=== PATIENT | female | born 1960 | race Caucasian/White ===

== ENCOUNTER 2018-01-12 11:44 | Emergency (ER) | payer SELFPAY ==
[2018-01-12] MEDS ORDERED: IOHEXOL 350 MG/ML 10 ML VIAL (for RAD DIAG) IVCONTRAST ONE (11:45)
[2018-01-12 11:56] VITALS: BP 117/73; PULSE 93; RESP 16; TEMP 98.5; O2SAT 99
[2018-01-12] MEDS ORDERED: SODIUM CHLORIDE 0.9% FLUSH 10 ML FLUSH IV FLUSH PRN (13:00)
--- NOTE | 2018-01-12 13:02 | PD ---
HPI Chief Complaint: GI Complaint Time Seen by Provider: 12:35 Travel History International Travel<30 days: No Contact w/Intl Traveler<30days: No Traveled to known affect area: No History of Present Illness HPI 37-year-old female presents to the emergency department with complaint of lower abdominal pain 4 days. Denies dysuria, urinary frequency, hematuria, nausea, vomiting, diarrhea, constipation. Denies abnormal vaginal discharge, although she does state she noticed a different vaginal spell yesterday. Last bowel movement was yesterday and is normal. Says she has noticed some right flank pain today. Does have history of kidney stones. Has history of total hysterectomy and appendectomy. She is taken Advil for symptom management with no relief. Rates pain 9/10. Says the pain is constant and there are no known relieving or aggravating factors. No primary care provider. No known allergies. History of asthma. Has no other medical complaints. No other modifying factors or associated signs and symptoms. PFSH Past Medical History GERD: Yes Migraines: Yes Past Surgical History Appendectomy: Yes Hysterectomy: Yes Social History Alcohol Use: No Tobacco Use: No Substance Use: No Allergies-Medications (Allergen,Severity, Reaction): Coded Allergies: No Known Allergies (Unverified , 01/12/18) Reported Meds & Prescriptions Reported Meds & Active Scripts Active No Active Prescriptions or Reported Medications Review of Systems Except as stated in HPI: all other systems reviewed are Neg Physical Exam Narrative GENERAL: Well-nourished, well-developed female patient, in no acute distress; afebrile SKIN: Warm and dry. HEAD: Atraumatic. Normocephalic. EYES: Pupils equal and round. No scleral icterus. No injection or drainage. ENT: Mucosa pink and moist. Airway patent. NECK: Trachea midline. CARDIOVASCULAR: Regular rate and rhythm. No murmur appreciated. RESPIRATORY: No accessory muscle use. Clear to auscultation. Breath sounds equal bilaterally. GASTROINTESTINAL: Abdomen soft, tenderness on palpation to mid lower epigastric/ pelvic, nondistended. Hepatic and splenic margins not palpable. Bowel sounds are active 4 quadrants. Nonrigid. No rebound tenderness. No guarding. BACK: No CVA tenderness. MUSCULOSKELETAL: No obvious deformities. No clubbing. No cyanosis. No edema. NEUROLOGICAL: Awake and alert. Oriented 3. No obvious cranial nerve deficits. Motor grossly within normal limits. Normal speech. PSYCHIATRIC: Appropriate mood and affect; insight and judgment normal. Data Data Last Documented VS Vital Signs Date Time Temp Pulse Resp B/P (MAP) Pulse Ox O2 Delivery O2 Flow Rate FiO2 01/12/18 11:56 98.5 93 16 117/73 (88) 99 Orders Orders Complete Blood Count With Diff (01/12/18 12:52) Comprehensive Metabolic Panel (01/12/18 12:52) Lipase (01/12/18 12:52) Urinalysis - C+S If Indicated (01/12/18 12:52) Iv Access Insert/Monitor (01/12/18 12:52) Sodium Chloride 0.9% Flush (Ns Flush) (01/12/18 13:00) Sodium Chlor 0.9% 1000 Ml Inj (Ns 1000 M (01/12/18 13:07) Ketorolac Inj (Toradol Inj) (01/12/18 13:15) Wet Prep Profile (01/12/18 14:56) Ct Abd/Pel W Iv Contrast(Rout) (01/12/18 15:02) Iohexol 350 Inj (Omnipaque 350 Inj) (01/12/18 11:45) Labs Laboratory Tests Test 01/12/18 13:40 01/12/18 15:06 White Blood Count 10.9 TH/MM3 Red Blood Count 4.18 MIL/MM3 Hemoglobin 12.4 GM/DL Hematocrit 37.0 % Mean Corpuscular Volume 88.5 FL Mean Corpuscular Hemoglobin 29.7 PG Mean Corpuscular Hemoglobin Concent 33.5 % Red Cell Distribution Width 13.6 % Platelet Count 293 TH/MM3 Mean Platelet Volume 8.1 FL Neutrophils (%) (Auto) 74.4 % Lymphocytes (%) (Auto) 17.0 % Monocytes (%) (Auto) 7.1 % Eosinophils (%) (Auto) 0.9 % Basophils (%) (Auto) 0.6 % Neutrophils # (Auto) 8.1 TH/MM3 Lymphocytes # (Auto) 1.8 TH/MM3 Monocytes # (Auto) 0.8 TH/MM3 Eosinophils # (Auto) 0.1 TH/MM3 Basophils # (Auto) 0.1 TH/MM3 CBC Comment DIFF FINAL Differential Comment Urine Color YELLOW Urine Turbidity CLEAR Urine pH 5.5 Urine Specific [place] 1.029 Urine Protein TRACE mg/dL Urine Glucose (UA) NEG mg/dL Urine Ketones NEG mg/dL Urine Occult Blood NEG Urine Nitrite NEG Urine Bilirubin NEG Urine Urobilinogen 2.0 MG/DL Urine Leukocyte Esterase SMALL Urine RBC 2 /hpf Urine WBC 5 /hpf Urine Squamous Epithelial Cells 1 /hpf Urine Calcium Oxalate Crystals FEW /hpf Urine Mucus FEW /lpf Microscopic Urinalysis Comment CULT NOT INDICATED Blood Urea Nitrogen 11 MG/DL Creatinine 0.76 MG/DL Random Glucose 113 MG/DL Total Protein 7.2 GM/DL Albumin 3.4 GM/DL Calcium Level 9.0 MG/DL Alkaline Phosphatase 106 U/L Aspartate Amino Transf (AST/SGOT) 20 U/L Alanine Aminotransferase (ALT/SGPT) 19 U/L Total Bilirubin 0.5 MG/DL Sodium Level 141 MEQ/L Potassium Level 3.7 MEQ/L Chloride Level 109 MEQ/L Carbon Dioxide Level 27.2 MEQ/L Anion Gap 5 MEQ/L Estimat Glomerular Filtration Rate 78 ML/MIN Lipase 93 U/L Clue Cells (Wet Prep) NONE SEEN Vaginal Trichomonas (Wet Prep) NONE SEEN Vaginal Yeast (Wet Prep) NONE SEEN MDM Medical Decision Making Medical Screen Exam Complete: Yes Emergency Medical Condition: Yes Medical Record Reviewed: Yes Differential Diagnosis Bacterial vaginosis, vaginal yeast, diverticulitis, nonspecific abdominal pain, constipation Narrative Course 57-year-old female with lower abdominal pain. Afebrile and nontoxic-appearing. Denies fever, vomiting, diarrhea. Discussed the patient with Dr. Moser and plan of care discussed. CBC, CMP, lipase, urinalysis, CT abdomen/pelvis, wet prep ordered. IV fluids, Toradol ordered. 1428: CBC, CMP unremarkable. Lipase 93. Urinalysis without signs of infection. 1733:, Vaginal yeast, bacterial vaginosis negative. 1734: CT abdomen/pelvis conclude: Abdomen/Pelvis CT 01/12/18 1502 Signed Impressions: Service Date/Time: Friday, January 12, 2018 15:20 - CONCLUSION: Focal inflammation around a small sigmoid diverticula consistent with diverticulitis. No abscess free air or free fluid is noted. Edis Reis MD Discussed CT findings with the patient. Dr. Enriquez evaluated the patient and agrees for discharge with antibiotics. Ciprofloxacin, Flagyl, tramadol, Zofran prescribed for home. Instructed patient to follow-up with gastroenterology. Instructed patient to follow up with primary care provider. Patient verbalizes understanding and agreement with treatment plan. Patient is medically cleared and stable for discharge. Discussed reasons to return to the emergency department. Patient agrees with treatment plan. The patients vital signs are stable and the patient is stable for outpatient follow-up and treatment. Patient discharged home, stable and in no acute distress. Diagnosis Primary Impression: Diverticulitis Referrals: [facility] Primary Care Physician Patient Instructions: Diverticulitis (ED), General Instructions Additional Instructions: Antibiotics as prescribed and complete full course Ibuprofen or Tylenol as directed and as needed for pain Follow-up with charcoal unloader Follow-up with primary care provider Return to the emergency department immediately with worsening of symptoms Med/Other Pt SpecificInfo: Prescription(s) given Scripts Ondansetron Odt (Zofran Odt) 4 Mg Tab 4 MG SL Q8HR Y for Nausea/Vomiting, #8 TAB 0 Refills Prov: Teresa ValdiviaP 01/12/18 Tramadol (Tramadol) 50 Mg Tab 50 MG PO Q4H Y for PAIN, #10 TAB 0 Refills Prov: Teresa ValdiviaP 01/12/18 Metronidazole (Flagyl) 500 Mg Tab 500 MG PO TID for Infection for 7 Days, TAB 0 Refills Prov: Teresa ValdiviaP 01/12/18 Ciprofloxacin (Ciprofloxacin) 500 Mg Tab 500 MG PO BID for Infection for 7 Days, #14 TAB 0 Refills Prov: Teresa ValdiviaP 01/12/18 Disposition: 01 DISCHARGE HOME Condition: Stable Teresa Valdivia Jan 12, 2018 13:02
[2018-01-12] MEDS ORDERED: SODIUM CHLOR 0.9% 1000 ML INJ 1,000 ML IV SCH (13:07)
[2018-01-12] MEDS ORDERED: KETOROLAC TROMETHAMINE 30 MG/ML (IVP) VIAL IVP ONE (13:15)
[2018-01-12 13:48] LABS: AUTOMATED NEUTROPHIL # 8.1 TH/MM3 (1.8-7.7); BASOPHIL # 0.1 TH/MM3 (0-0.2); BASOPHIL % 0.6 % (0.0-2.0); EOSINOPHIL # 0.1 TH/MM3 (0-0.4); EOSINOPHIL % 0.9 % (0.0-4.0); HEMOGLOBIN 12.4 GM/DL (11.6-15.3); LYMPHOCYTE # 1.8 TH/MM3 (1.0-4.8); MEAN CELL VOLUME 88.5 FL (80.0-100.0); MEAN CORPUSCULAR HEMOGLOBIN 29.7 PG (27.0-34.0); MEAN CORPUSCULAR HGB CONC 33.5 % (32.0-36.0); MEAN PLATELET VOLUME 8.1 FL (7.0-11.0); MONO % 7.1 % (0.0-8.0); MONOCYTE # 0.8 TH/MM3 (0-0.9); NEUT % 74.4 % (16.0-70.0); PLATELET COUNT 293 TH/MM3 (150-450); RED BLOOD COUNT 4.18 MIL/MM3 (4.00-5.30); RED CELL DISTRIBUTION WIDTH 13.6 % (11.6-17.2); WHITE BLOOD COUNT 10.9 TH/MM3 (4.0-11.0)
[2018-01-12 13:58] LABS: BILIRUBIN, URINE NEG (NEG); BLOOD, URINE NEG (NEG); CALCIUM OXALATE CRYSTALS,URINE FEW /hpf; GLUCOSE,URINE NEG (NEG); KETONE, URINE NEG (NEG); MUCUS URINE FEW /lpf (OCC); NITRITE,URINE NEG (NEG); PH, URINE 5.5 (5.0-8.5); SQUAMOUS EPITHELIAL CELL URINE 1 /hpf (0-5); URINE COLOR YELLOW (YELLW/STRAW); URINE LEUKOCYTE ESTERASE SMALL (NEG)
[2018-01-12 14:18] LABS: ALBUMIN 3.4 GM/DL (3.4-5.0); AST (GOT) 20 U/L (15-37); BICARBONATE 27.2 MEQ/L (21.0-32.0); BLOOD UREA NITROGEN 11 MG/DL (7-18); CHLORIDE 109 MEQ/L (98-107); CREATININE 0.76 MG/DL (0.50-1.00); GLOMERULAR FILTRATION RATE 78 ML/MIN (>89); GLUCOSE,RANDOM 113 MG/DL (74-106); SODIUM (NA) 141 MEQ/L (136-145)
[2018-01-12 14:25] LABS: ALKALINE PHOSPHATASE 106 U/L (45-117); ALT (GPT) 19 U/L (10-53); TOTAL BILIRUBIN ADULT 0.5 MG/DL (0.2-1.0); TOTAL PROTEIN 7.2 GM/DL (6.4-8.2)
--- NOTE | 2018-01-12 15:41 | RADRPT ---
EXAM DATE/TIME: 01/12/2018 15:20 [facility] COMPARISON: No previous studies available for comparison. INDICATIONS : Abdominal pain. IV CONTRAST: 94 cc Omnipaque 350 (iohexol) IV ORAL CONTRAST: No oral contrast ingested. RADIATION DOSE: 7.85 CTDIvol (mGy) MEDICAL HISTORY : Gastroesophageal reflux disease. SURGICAL HISTORY : Appendectomy. Hysterectomy. ENCOUNTER: Initial ACUITY: 4 - 6 days PAIN SCALE: 9/10 LOCATION: Bilateral lower quadrant TECHNIQUE: Volumetric scanning of the abdomen and pelvis was performed. Using automated exposure control and ad justment of the mA and/or kV according to patient size, radiation dose was kept as low as reasonably achievable to obtain optimal diagnostic quality images. DICOM format image data is available electro nically for review and comparison. FINDINGS: LOWER LUNGS: The visualized lower lungs are clear. LIVER: Homogeneous density without lesion. There is no dilation of the biliary tree. No calcified gallston es. SPLEEN: Normal size without lesion. PANCREAS: Within normal limits. KIDNEYS: Normal in size and shape. There is no mass, stone or hydronephrosis. ADRENAL GLANDS: Within normal limits. VASCULAR: There is no aortic aneurysm. BOWEL/MESENTERY: Focal inflammation around a small sigmoid diverticula consistent with diverticulitis. No abscess free air or free fluid is noted ABDOMINAL WALL: Within normal limits. RETROPERITONEUM: There is no lymphadenopathy. BLADDER: No wall thickening or mass. REPRODUCTIVE: Within normal limits. INGUINAL: There is no lymphadenopathy or hernia. MUSCULOSKELETAL: Within normal limits for patient age. CONCLUSION: Focal inflammation around a small sigmoid diverticula consistent with diverticulitis. No abscess free air or free fluid is noted. Edis Reis MD on January 12, 2018 at 15:36 Board Certified Radiologist. This report was verified electronically.
[2018-01-12] MEDS ORDERED: TRAM50TA PO (17:46)
[2018-01-12] MEDS ORDERED: CIPR500T2 PO (17:46)
[2018-01-12] MEDS ORDERED: METR-1 PO (17:46)
[2018-01-12] MEDS ORDERED: ZOFR4TAB3 SL (17:46)
--- NOTE | 2018-01-12 17:52 | PD ---
Data Data Last Documented VS Vital Signs Date Time Temp Pulse Resp B/P (MAP) Pulse Ox O2 Delivery O2 Flow Rate FiO2 01/12/18 11:56 98.5 93 16 117/73 (88) 99 Orders Orders Complete Blood Count With Diff (01/12/18 12:52) Comprehensive Metabolic Panel (01/12/18 12:52) Lipase (01/12/18 12:52) Urinalysis - C+S If Indicated (01/12/18 12:52) Iv Access Insert/Monitor (01/12/18 12:52) Sodium Chloride 0.9% Flush (Ns Flush) (01/12/18 13:00) Sodium Chlor 0.9% 1000 Ml Inj (Ns 1000 M (01/12/18 13:07) Ketorolac Inj (Toradol Inj) (01/12/18 13:15) Wet Prep Profile (01/12/18 14:56) Ct Abd/Pel W Iv Contrast(Rout) (01/12/18 15:02) Iohexol 350 Inj (Omnipaque 350 Inj) (01/12/18 11:45) Ed Discharge Order (01/12/18 17:50) Labs Laboratory Tests Test 01/12/18 13:40 01/12/18 15:06 White Blood Count 10.9 TH/MM3 Red Blood Count 4.18 MIL/MM3 Hemoglobin 12.4 GM/DL Hematocrit 37.0 % Mean Corpuscular Volume 88.5 FL Mean Corpuscular Hemoglobin 29.7 PG Mean Corpuscular Hemoglobin Concent 33.5 % Red Cell Distribution Width 13.6 % Platelet Count 293 TH/MM3 Mean Platelet Volume 8.1 FL Neutrophils (%) (Auto) 74.4 % Lymphocytes (%) (Auto) 17.0 % Monocytes (%) (Auto) 7.1 % Eosinophils (%) (Auto) 0.9 % Basophils (%) (Auto) 0.6 % Neutrophils # (Auto) 8.1 TH/MM3 Lymphocytes # (Auto) 1.8 TH/MM3 Monocytes # (Auto) 0.8 TH/MM3 Eosinophils # (Auto) 0.1 TH/MM3 Basophils # (Auto) 0.1 TH/MM3 CBC Comment DIFF FINAL Differential Comment Urine Color YELLOW Urine Turbidity CLEAR Urine pH 5.5 Urine Specific [place] 1.029 Urine Protein TRACE mg/dL Urine Glucose (UA) NEG mg/dL Urine Ketones NEG mg/dL Urine Occult Blood NEG Urine Nitrite NEG Urine Bilirubin NEG Urine Urobilinogen 2.0 MG/DL Urine Leukocyte Esterase SMALL Urine RBC 2 /hpf Urine WBC 5 /hpf Urine Squamous Epithelial Cells 1 /hpf Urine Calcium Oxalate Crystals FEW /hpf Urine Mucus FEW /lpf Microscopic Urinalysis Comment CULT NOT INDICATED Blood Urea Nitrogen 11 MG/DL Creatinine 0.76 MG/DL Random Glucose 113 MG/DL Total Protein 7.2 GM/DL Albumin 3.4 GM/DL Calcium Level 9.0 MG/DL Alkaline Phosphatase 106 U/L Aspartate Amino Transf (AST/SGOT) 20 U/L Alanine Aminotransferase (ALT/SGPT) 19 U/L Total Bilirubin 0.5 MG/DL Sodium Level 141 MEQ/L Potassium Level 3.7 MEQ/L Chloride Level 109 MEQ/L Carbon Dioxide Level 27.2 MEQ/L Anion Gap 5 MEQ/L Estimat Glomerular Filtration Rate 78 ML/MIN Lipase 93 U/L Clue Cells (Wet Prep) NONE SEEN Vaginal Trichomonas (Wet Prep) NONE SEEN Vaginal Yeast (Wet Prep) NONE SEEN MDM Supervised Visit with [place]: Yes Narrative Course I, Dr. Enriquez, have reviewed the advance practice practitioner's documentation and am in agreement, met with the patient face to face, made the diagnosis, and the medical decision making was done by me. *My assessment and Findings: Patient's abdomen is soft with some tenderness but no rebound or guarding. CT scan suggests some diverticulitis without fistula or obstruction or abscess. Labs are normal. She will follow-up outpatient and be placed on a week of antibiotics as well as symptom relief Diagnosis Primary Impression: Diverticulitis Referrals: [employer] [facility] Primary Care Physician Patient Instructions: General Instructions, Diverticulitis (ED) Additional Instruction: Antibiotics as prescribed and complete full course Ibuprofen or Tylenol as directed and as needed for pain Follow-up with general passenger agent Follow-up with primary care provider Return to the emergency department immediately with worsening of symptoms Scripts Ondansetron Odt (Zofran Odt) 4 Mg Tab 4 MG SL Q8HR Y for Nausea/Vomiting, #8 TAB 0 Refills Prov: Teresa Valdivia [employer] 01/12/18 Tramadol (Tramadol) 50 Mg Tab 50 MG PO Q4H Y for PAIN, #10 TAB 0 Refills Prov: Teresa Valdivia [employer] COVER[employer] 01/12/18 Metronidazole (Flagyl) 500 Mg Tab 500 MG PO TID for Infection for 7 Days, TAB 0 Refills Prov: Teresa Valdivia 01/12/18 Ciprofloxacin (Ciprofloxacin) 500 Mg Tab 500 MG PO BID for Infection for 7 Days, #14 TAB 0 Refills Prov: Teresa Valdivia 01/12/18 Disposition: 01 DISCHARGE HOME Condition: Stable Tyson Enriquez MD Jan 12, 2018 17:52
[2018-01-12 18:47] VITALS: BP 134/90
== END 2018-01-12 18:58 | disposition home or self-care (01) ==
LOC: NEPD 11:44
DX: K57.32 Diverticulitis of large intestine without perforation or abscess without bleeding (principal); Z87.442 Personal history of urinary calculi; J45.909 Unspecified asthma, uncomplicated
CPT/HCPCS: 74177; 80053; 81001; 83690; 85025; 87210; 96374; 99284; J1885; J7030; Q9967